=== PATIENT | female | born 1995 | race American Indian/Alaskan Native ===

== ENCOUNTER 2017-08-22 08:03 | Inpatient (IN) | payer OTHER ==
[2017-08-22 08:56] LABS: Basophils % (Auto) 0.3 % (0.0-1.8); Hematocrit 41.3 % (30.3-42.9); Hemoglobin 13.5 gm/dl (10.1-14.3); Mean Corpuscular HGB Conc 33 % (30-34); Mean Corpuscular Hemoglobin 31 pg (28-32); Mean Corpuscular Volume 94 fl (79-97); Platelet Count 206 K/mm3 (140-440); Red Blood Count 4.38 M/mm3 (3.65-5.03); Red Cell Distribution Width 13.5 % (13.2-15.2); White Blood Count 11.1 K/mm3 (4.5-11.0)
[2017-08-22 09:03] LABS: Alanine Aminotransferase 10 units/L (7-56); Albumin 4.1 g/dL (3.9-5); Albumin/Globulin Ratio 1.2 %; Alkaline Phosphatase 56 units/L (35-129); Anion Gap 16 mmol/L; Blood Urea Nitrogen 9 mg/dL (7-17); Carbon Dioxide 24 mmol/L (22-30); Chloride 105.3 mmol/L (98-107); Glucose 92 mg/dL (65-100); Lipase 17 units/L (13-60); Sodium 141 mmol/L (137-145); Total Protein 7.5 g/dL (6.3-8.2)
[2017-08-22 09:30] LABS: Bilirubin,Urine NEG (Negative); Blood,Urine NEG (Negative); Ketones,Urine NEG (Negative); Leukocyte Esterase,Urine NEG (Negative); Mucus,Urine FEW /HPF; Nitrite,Urine NEG (Negative); Protein,Urine <15 mg/dL mg/dL (Negative); Urobilinogen,Urine < 2.0 mg/dL (<2.0); WBC,Urine < 1.0 /HPF (0.0-6.0)
[2017-08-22] MEDS ORDERED: ZOFRAN IV ONE ×2 (12:37→17:20)
[2017-08-22] MEDS ORDERED: NACL 0.9% 1000 ML 1,000 ML IV ONE ×2 (12:38→17:20)
[2017-08-22] MEDS ORDERED: MORPHINE IV ONE ×2 (12:38→17:20)
--- NOTE | 2017-08-22 12:39 | Emergency Department Report ---
ED Abdominal Pain HPI - General Chief Complaint: Abdominal Pain Stated Complaint: ABD PAIN Time Seen by Provider: 08/22/17 11:30 Source: patient Mode of arrival: Ambulatory Limitations: No Limitations - History of Present Illness Initial Comments: 22-year-old female past medical history appendicitis presents with 1 day of fevers chills nausea vomiting multiple episodes of vomiting and worsening right lower quadrant pain that is migratory to the umbilical region. Patient accompanied by family members. Patient states that in September 2016 she was hospitalized for appendicitis but did not have her appendix removed at that time. Patient states she was given IV fluid pain medicine and then discharged by surgeon. Patient now presents with similar symptoms as what she had before. Patient is awake alert and oriented 3 nontoxic-appearing appears uncomfortable and examination bed secondary to pain. Pain currently 9/10. Patient has had more than 10 vomiting episodes since yesterday, complains of subjective fever and chills. MD Complaint: abdominal pain Onset/Timin Location: RLQ Radiation: RLQ Severity scale (0 -10): 7 Quality: sharp Consistency: constant Associated Symptoms: nausea, vomiting, diarrhea, chills - Related Data Home Medications Medication Instructions Recorded Confirmed Last Taken No Known Home Medications [No 10/07/16 10/07/16 Unknown Reported Home Medications] Allergies Allergy/AdvReac Type Severity Reaction Status Date / Time No Known Allergies Allergy Unverified 10/07/16 09:19 ED Review of Systems ROS: Stated complaint: ABD PAIN Other details as noted in HPI Constitutional: denies: chills, fever Eyes: denies: eye pain, eye discharge, vision change ENT: denies: ear pain, throat pain Respiratory: denies: cough, shortness of breath, wheezing Cardiovascular: denies: chest pain, palpitations Endocrine: no symptoms reported Gastrointestinal: abdominal pain, nausea, diarrhea Genitourinary: denies: urgency, dysuria, discharge Musculoskeletal: denies: back pain, joint swelling, arthralgia Skin: denies: rash, lesions Neurological: denies: headache, weakness, paresthesias Psychiatric: denies: anxiety, depression Hematological/Lymphatic: denies: easy bleeding, easy bruising ED Past Medical Hx - Past Medical History Previous Medical History?: Yes Hx Congestive Heart Failure: No Hx Diabetes: No Hx Asthma: No Hx COPD: No Additional medical history: swelling around appendix, stomach flu - Surgical History Past Surgical History?: Yes Additional Surgical History: nose surgery - Social History Smoking Status: Current Every Day Smoker Substance Use Type: Alcohol - Medications Home Medications: Home Medications Medication Instructions Recorded Confirmed Last Taken Type No Known Home Medications [No 10/07/16 10/07/16 Unknown History Reported Home Medications] ED Physical Exam - General Limitations: No Limitations General appearance: alert, in no apparent distress - Head Head exam: Present: atraumatic, normocephalic - Eye Eye exam: Present: normal appearance, PERRL, EOMI - ENT ENT exam: Present: mucous membranes moist - Neck Neck exam: Present: normal inspection - Respiratory Respiratory exam: Present: normal lung sounds bilaterally. Absent: respiratory distress - Cardiovascular Cardiovascular Exam: Present: regular rate, normal rhythm. Absent: systolic murmur, diastolic murmur, rubs, gallop - GI/Abdominal GI/Abdominal exam: Present: tenderness (tenderness in the right lower quadrant on palpation at McBurney's point, positive iliopsoas sign positive Rovsing sign) , guarding, normal bowel sounds - Extremities Exam Extremities exam: Present: normal inspection - Back Exam Back exam: Present: normal inspection - Neurological Exam Neurological exam: Present: alert, oriented X3, CN II-XII intact, normal gait - Psychiatric Psychiatric exam: Present: normal affect, normal mood - Skin Skin exam: Present: warm, dry, intact, normal color. Absent: rash ED Course Vital Signs 08/22/17 08/22/17 08/22/17 08:09 13:30 13:32 Temperature 98.5 F Pulse Rate 75 Respiratory 18 18 16 Rate Blood Pressure 125/66 O2 Sat by Pulse 100 99 Oximetry ED Medical Decision Making - Lab Data Result diagrams: 08/22/17 08:17 08/22/17 08:17 - Medical Decision Making A/P: Abdominal pain, nausea and vomiting, acute appendicitis 1-case discussed with Dr. Lyons ED attending 2-case discussed with on-call surgeon Dr. cMcray, as per general surgery consultation will make patient nothing by mouth provide analgesia IV fluid and cover empirically with IV Zosyn 3-labs and blood cultures sent 4- patient in agreement with clinical plan and understands the clinical significance of her diagnosis. Patient's significant other present for this conversation. Critical care attestation.: If time is entered above; I have spent that time in minutes in the direct care of this critically ill patient, excluding procedure time. ED Disposition Clinical Impression: Acute appendicitis Qualifiers: Acute appendicitis type: with localized peritonitis Qualified Code(s): K35.3 - Acute appendicitis with localized peritonitis Nausea and vomiting Qualifiers: Vomiting type: bilious vomiting Qualified Code(s): R11.14 - Bilious vomiting Abdominal pain Qualifiers: Abdominal location: right lower quadrant Qualified Code(s): R10.31 - Right lower quadrant pain Intractable nausea and vomiting Qualifiers: Vomiting type: unspecified Qualified Code(s): R11.2 - Nausea with vomiting, unspecified Disposition: 09 OP ADMIT IP TO THIS HOSP Is pt being admited?: No Does the pt Need Aspirin: No Condition: Stable Instructions: Abdominal Pain (ED) Referrals: PRIMARY CARE, [Primary Care Provider] - 3-5 Days
[2017-08-22] MEDS ORDERED: NACL ONE (14:48)
--- NOTE | 2017-08-22 16:19 | Cat Scan Report ---
FINAL REPORT PROCEDURE: CT ABDOMEN PELVIS W CON TECHNIQUE: Computerized axial tomography of the abdomen and pelvis was performed after the IV injection of iodinated nonionic contrast. HISTORY: RLQ abd pain COMPARISON: No prior studies are available for comparison. FINDINGS: Visualized lower thorax: No significant abnormality. Liver: Normal size and attenuation. Spleen: Normal size and attenuation. Gallbladder and biliary system: Gallbladder is present. Pancreas: Normal. Adrenals: Normal. Kidneys: Normal. GI tract: Appendix measures 11 millimeters in outer diameter. There is mild surrounding inflammation, and findings are compatible with early appendicitis. No abscess or extraluminal air is seen. No bowel obstruction or other inflammation is seen Lymph nodes and mesentery: Normal. Vasculature: Normal. Bladder: Normal. Reproductive organs: Normal. Peritoneum: Small amount of fluid is seen in the pelvis and right lower quadrant. Musculoskeletal structures: No significant abnormality. Other: None. IMPRESSION: Findings compatible with early appendicitis. No abscess or extraluminal air is identified. Findings were discussed with DAV Lin by telephone at 3:15 p.m. central standard time on 08/22/2017.
[2017-08-22] MEDS ORDERED: ZOSYN/NS 4.5GM/100ML 4.5 GM/100 ML VIAL IV ONE ×2 (16:50→18:18)
[2017-08-22] MEDS ORDERED: ZOFRAN IV PRN (16:59)
[2017-08-22] MEDS ORDERED: MORPHINE IV SCH (17:00)
[2017-08-22] MEDS ORDERED: MORPHINE IV PRN (17:00)
[2017-08-22] MEDS ORDERED: ZOFRAN ONE ×2 (18:57→23:28)
[2017-08-22] MEDS ORDERED: MORPHINE ONE (18:58)
[2017-08-22] MEDS ORDERED: NACL 0.9% 1000 ML 1,000 ML ONE (19:12)
--- NOTE | 2017-08-22 19:28 | History and Physical Report ---
History of Present Illness Date of examination: 08/22/17 Date of admission: 08/22/17 16:57 Chief complaint: abdominal pain History of present illness: 22 y/o F with no PMHx presents to the emergency room for evaluation of one day hx of RLQ abdominal pain, severe and sharp in nature. This was associated with n /v x1 (nonbloody/nonbilious). No f/c, CP, SOB. She denies constipation, diarrhea , or dysuria. She had a similar episode last year and was managed conservatively with antibiotics and has felt well up until today. Past History Past Medical History: No medical history Past Surgical History: No surgical history Social history: smoking (cigars - 1 per day) Family history: no significant family history Medications and Allergies Allergies Allergy/AdvReac Type Severity Reaction Status Date / Time No Known Allergies Allergy Unverified 10/07/16 09:19 Home Medications Medication Instructions Recorded Confirmed Last Taken Type No Known Home Medications [No 10/07/16 10/07/16 Unknown History Reported Home Medications] Active Meds: Active Medications Heparin Sodium (Porcine) (Heparin) 5,000 unit SUB-Q Q8HR FELIX Morphine Sulfate (Morphine) 4 mg IV Q6H PRN PRN Reason: Pain , Severe (7-10) Ondansetron HCl (Zofran) 4 mg IV Q8H PRN PRN Reason: Nausea Review of Systems All systems: negative (see hpi) Exam Vital Signs BP 125/66 08/22/17 08:08 Narrative exam: Gen: AAOx3. NAD CV: S1, S2+ Resp: NO audible wheezes Abd: soft, ND, RLQ TTP, no r/r/g Ext: No c/c/e Results - Labs 08/22/17 08:17 08/22/17 08:17 - Imaging CT scan - abdomen: report reviewed, image reviewed CT scan - pelvis: report reviewed, image reviewed (11mm appendix with periappendiceal inflammation, non filling of appendix) Assessment and Plan 22 yo f with acute appendicitis 1. will place under observation, med/surg floor 2. NPO 3. IVF 4. IV abx - zosyn given in ED 5. pain and nausea control prn 6. OR for appendectomy, all risks and benefits discussed with patient and family members at bedside and consent signed
[2017-08-22] MEDS ORDERED: LACTATED RINGERS 1,000 ML ONE ×2 (21:00→23:27)
--- NOTE | 2017-08-22 21:01 | Anesthesia Consultation ---
Anesthesia Consult and Med Hx Date of service: 08/22/17 - Airway Anesthetic Teeth Evaluation: Good ROM Head & Neck: Adequate Mental/Hyoid Distance: Adequate Mallampati Class: Class II Intubation Access Assessment: Probably Good - Pulmonary Exam CTA: Yes - Cardiac Exam Cardiac Exam: RRR - Pre-Operative Health Status ASA Pre-Surgery Classification: ASA3, Emergency Proposed Anesthetic Plan: General - Pulmonary Hx Asthma: Yes (albuterol, presently breathing at baseline.) COPD: No Hx Pneumonia: No - Endocrine Hx End Stage Renal Disease: No
--- NOTE | 2017-08-22 21:01 | Anesthesia Day of Surgery ---
Anesthesia Day of Surgery - Day of Surgery Patient Examined: Yes Patient H&P Reviewed: Yes Patient is NPO: Yes
[2017-08-22] MEDS ORDERED: DILAUDID IV PRN (21:03)
[2017-08-22] MEDS ORDERED: DIPRIVAN 10 MG/ML IV ONE (21:03)
[2017-08-22] MEDS ORDERED: DILAUDID ONE (21:04)
[2017-08-22] MEDS ORDERED: VERSED IV NR (22:00)
[2017-08-22] MEDS ORDERED: LACTATED RINGERS 1,000 ML IV SCH (22:00)
[2017-08-22] MEDS ORDERED: PEPCID IV NR (22:00)
[2017-08-22] MEDS ORDERED: XYLOCAINE 1% 20 mL ONE (22:51)
[2017-08-22] MEDS ORDERED: MARCAINE 0.25% INFILTRATI ONE ×2 (22:51→23:15)
[2017-08-22] MEDS ORDERED: XYLOCAINE 1% 20 mL INFILTRATI ONE (23:15)
[2017-08-22] MEDS ORDERED: QUELICIN ONE (23:27)
[2017-08-22] MEDS ORDERED: XYLOCAINE MPF 2% ONE ×2 (23:27→23:55)
[2017-08-22] MEDS ORDERED: TORADOL ONE (23:28)
[2017-08-22] MEDS ORDERED: DECADRON ONE (23:28)
[2017-08-22] MEDS ORDERED: ZEMURON IV ONE (23:28)
[2017-08-22] MEDS ORDERED: ROBINUL ONE (23:37)
[2017-08-22] MEDS ORDERED: NEOSTIGMINE ONE (23:38)
[2017-08-23] MEDS ORDERED: MORPHINE IV PRN (00:04)
[2017-08-23] MEDS ORDERED: PERCOCET 5/325 PO PRN (00:06)
--- NOTE | 2017-08-23 00:14 | Operative Report ---
Operative Report Operative Report: Date of operation: 08/22/2017 Preoperative diagnosis: Acute appendicitis Postoperative diagnosis: Acute appendicitis Procedure performed: Laparoscopic appendectomy Surgeon: Roger Mccray DO Anesthesia: Gen. endotracheal anesthesia Findings: Dilated and inflamed appendix Specimens: Appendix Estimated blood loss: Less than 5 mL Complications: None Condition: Stable to PACU HPI an indication: Patient is 22-year-old female presents to Hospital for complaints of right lower quadrant abdominal pain 1 day. She had a mild leukocytosis and on physical exam she was especially tender in the right lower quadrant. She was found to have acute appendicitis on the CT scan of abdomen and pelvis. All were some benefits of a laparoscopic possible open appendectomy were discussed with her and her family they agree to proceed. Consent was signed and placed on chart. Procedure in detail: Patient was identified in the preoperative area and taken back to the operating room, placed on operating table in supine position. After anesthesia was induced, a Barajas catheter sterilely placed by the circulating nurse. The abdomen was then prepped and draped in usual sterile fashion a timeout was performed. Local anesthetic was infiltrated into the skin at the incision sites. The abdomen was entered via a 5 mm incision above the umbilicus using a veress needle. The veress needle positioning was confirmed with a saline drop test and the abdomen was then insufflated to 15 mmHg. Veress needle was then withdrawn and a 5 mm trocar was placed through this incision using Visiport. Abdomen was inspected with a camera there was no underlying injury to any of the abdominal contents. An additional 5 mm trocar was placed in suprapubic region and a 12 mm trocar in the left lower quadrant all under direct visualization. The ileocecal fat pad was identified and grasped and the appendix was visualized. It appeared dilated and inflamed with adhesions to the sidewall. These adhesions were taken down with a harmonic scalpel. The mesoappendix was ligated using the Harmonic scalpel until the base of the appendix was clearly visualized. Then using an [employer] flex 45 mm white load stapler, the appendix was transected at the base. This was placed into a Endo Catch bag and removed from the abdomen via the 12 mm port. The staple line was examined as well as the remaining mesentery and there was no bleeding or leakage from these areas. The wound bed was irrigated with a small amount of saline which returned clear. The pelvis was visualized, there appeared to be a ovarian cyst and simple fluid in the pelvis which was suctioned. The abdomen was then desufflated and all ports removed under direct visualization. The 12 mm port fascia was closed with 0 Vicryl interrupted stitch. The skin of all the ports was closed 4-0 Monocryl subcuticular stitch and Dermabond. The patient was awoken from anesthesia and activated. She was taken to PACU in stable condition. At the end of the case all sponge, instrument, sharp counts were correct 2. Barajas catheter was removed at the end of the case.
[2017-08-23] MEDS ORDERED: BENADRYL IV ONE (00:43)
[2017-08-23] MEDS ORDERED: BENADRYL ONE (00:44)
[2017-08-23] MEDS ORDERED: NACL 0.9% 1000 ML 1,000 ML IV SCH (01:00)
[2017-08-23] MEDS: HEPARIN SUB-Q SCH ×3 (02:05→14:00)
--- NOTE | 2017-08-23 10:07 | Progress Note ---
Assessment and Plan 22 yo F s/p laparoscopic appendectomy for acute appendicitis, POD 1 1. adv to reg diet 2. dc IVF 3. OOB -> ambulate 4. DVT ppx 5. PO pain control PRN 6. dc planning Subjective Date of service: 08/23/17 Patient Reports: Positive: no new complaints, feels better, pain is less, tolerating liquids well Objective Vital Signs - 12hr 08/23/17 08/23/17 08/23/17 00:15 00:20 00:30 Temperature 97.5 F L Pulse Rate 60 58 L 58 L Pulse Rate [ Right Radial] Respiratory 22 22 12 Rate Blood Pressure 104/63 108/60 109/58 O2 Sat by Pulse 100 100 100 Oximetry 08/23/17 08/23/17 08/23/17 00:44 01:01 01:03 Temperature 97 F L Pulse Rate 65 62 Pulse Rate [ Right Radial] Respiratory 10 L 12 Rate Blood Pressure 109/59 101/57 O2 Sat by Pulse 96 98 Oximetry 08/23/17 08/23/17 08/23/17 01:59 02:12 07:23 Temperature 98.2 F 98.1 F Pulse Rate 57 L 71 Pulse Rate [ 62 Right Radial] Respiratory 14 14 18 Rate Blood Pressure 107/63 98/56 O2 Sat by Pulse 97 97 Oximetry - General physical appearance Narrative Exam: Gen: AAOx3. NAD CV: S1, S2+ Resp: NO audible wheezes Abd: soft, NT, ND, incisions c/d/i Ext: no c/c/e - Labs 08/22/17 08:17 08/22/17 08:17
--- NOTE | 2017-08-23 10:12 | Discharge Summary ---
Providers - Providers Date of Admission: 08/22/17 16:57 Date of discharge: 08/23/17 Attending physician: MONTANA BOTELLO DO Primary care physician: MACHINE STUFFER Hospitalization Reason for admission: acute appendicitis Condition: Stable Pertinent studies: CT scan A/P Procedures: Laparoscopic appendectomy Hospital course: 22 yo F presented with RLQ abdominal pain. Her WBC count was elevated and acute appendicitis confirmed on CT of A/P. She underwent a laparoscopic appendectomy and post op course was uncomplicated. She was discharged to home after she was tolerating a regular diet, pain controlled with PO pain meds, and ambulating on her own. Disposition: DC-01 TO HOME OR SELFCARE Time spent for discharge: 30 minutes - Discharge Diagnoses (1) Acute appendicitis Status: Acute Qualifiers: Acute appendicitis type: with localized peritonitis Qualified Code(s): K35.3 - Acute appendicitis with localized peritonitis (2) Sepsis Status: Acute Qualifiers: Sepsis type: S Core Measure Documentation - Palliative Care Palliative Care/ Comfort Measures: Not Applicable - Core Measures Any of the following diagnoses?: none Exam - Physical Exam Narrative exam: Gen: AAOx3. NAD Abd: soft, NT, ND. incisions c/d/i - Constitutional Vitals: Temp Pulse Resp BP Pulse Ox 98.1 F 71 18 98/56 97 08/23/17 07:23 08/23/17 07:23 08/23/17 07:23 08/23/17 07:23 08/23/17 07:23 Plan Activity: other (no heavy lifting more than 15 lbs for 2 weeks, no driving if taking narcotic pain meds) Diet: regular Wound: open to air Follow up with: PRIMARY CAREMD [Primary Care Provider] - 3-5 Days MONTANA BOTELLO DO [Staff Physician] - 14 Days Prescriptions: oxyCODONE /ACETAMINOPHEN [Percocet 5/325 mg] 1 tab PO Q6H PRN #20 tablet PRN Reason: Pain, Moderate (4-6)
[2017-08-23 15:54] VITALS: BP 90/43
== END 2017-08-23 18:25 | disposition home or self-care (01) | DRG 854 ==
LOC: ED 08:03 → 3A 16:57
PROVIDERS: ADMIT Internal Medicine; ATTEND Surgery
PROC: 0DTJ4ZZ Resection of Appendix, Percutaneous Endoscopic Approach (ICD-10-PCS; principal; 2017-08-23)
DX: A41.9 Sepsis, unspecified organism (principal); K35.80 Unspecified acute appendicitis; F17.210 Nicotine dependence, cigarettes, uncomplicated
CPT/HCPCS: 36415; 74177; 80053; 81001; 81025; 82140; 83690; 85025; 87040; 88304; 96365; 96375; 96376; J0330; J1100; J1170; J1200; J1644; J1885; J2270; J2405; J2543; J2704; J2710; J7030; J7120; Q9967